=== PATIENT | male | born 1960 | race Caucasian/White ===

== ENCOUNTER → 2016-12-24 | Outpatient (CLI) | payer OTHER ==
--- NOTE | 2016-12-26 14:00 | MRI ---
EXAM DESCRIPTION: MR ABDOMEN WITHOUT THEN WITH IV CONTRAST CLINICAL HISTORY: 56 y/o M, INCIDENTAL FINDINGS OF RIGHT ADRENAL NODULE COMPARISON: None TECHNIQUE: Multiplanar multi sequence images of the abdomen were obtained with and without gadolinium contrast. FINDINGS: There is a 1.5 cm right adrenal nodule which demonstrates loss of signal on out of phase imaging consistent with an adenoma. No left adrenal nodule is seen period there is no adenopathy or ascites. No abdominal aortic aneurysm. The lung bases are unremarkable. There is no renal lesion. The liver and spleen are unremarkable. Post-contrast images show no suspicious enhancing intra-abdominal lesion period incidentally noted are 2 tiny right renal cysts. IMPRESSION: 1.5 cm right adrenal adenoma. Electronically signed by: Win Scales DO 12/26/2016 13:57
== END | disposition home or self-care (01) ==
LOC: MRI 08:51
PROVIDERS: ATTEND Podiatrist Foot & Ankle Surgery
DX: D35.01 Benign neoplasm of right adrenal gland (principal)